=== PATIENT | male | born 1970 | race Caucasian/White ===

== ENCOUNTER 2019-04-22 08:06 | Day surgery (SDC) | payer OTHER, SELFPAY ==
[2019-03-26 08:22] VITALS: BMI 34.4
--- NOTE | 2019-03-26 08:46 | HP_ITS ---
Intake Vital Signs 03/26/19 Height 5 ft 10 in 03/26/19 Weight: 240 lb 03/26/19 Body Mass Index (BMI) 34.4 03/26/19 Blood Pressure 126/65 H 03/26/19 Blood Pressure Location Rt brachial 03/26/19 Blood Pressure Position Sitting 03/26/19 Respiratory Rate 18 03/26/19 Pulse Rate 78 03/26/19 Pulse Source Monitor 03/26/19 Temperature 98.0 F 03/26/19 Pulse Ox 97 03/26/19 Oxygen Delivery Method room air Intake Visit Reasons: Bilat Inguinal Hernia/sports hernia Chief Complaint: right inguinal pain Snubber Required: No Is patient in pain?: No Allergies No Known Allergies Allergy (Verified 03/26/19 08:22) Medications aspirin 325 mg tablet 325 mg PO DAILY 03/26/19 [History Confirmed 03/26/19] lisinopril 20 mg tablet 20 mg PO DAILY 03/26/19 [History Confirmed 03/26/19] loratadine 10 mg tablet 10 mg PO DAILY 03/26/19 [History Confirmed 03/26/19] triamcinolone acetonide 55 mcg/actuation nasal spray,aerosol mcg INTRANASAL DAILY 03/26/19 [History] [facility] Medical History Hypertension (Acute) Inguinal hernia of left side without obstruction or gangrene (Acute) Groin pain, chronic, right (Acute) Family history of colon cancer in mother (Acute) HTN (hypertension) (Chronic ~2013) Surgical History History of colonoscopy (Acute) Family History Father Heart disease Mother Colon cancer Social History (Updated 03/26/19 @ 08:46 by Konrad Walker MD) Smoking Status: Never smoker alcohol intake: current alcohol intake frequency: a few times a month substance use type: does not use HPI HPI HPI: DU MCCARTHY is a 48 M who presents to the office today for HPI HPI Surgical H&P: Yes HPI: DU MCCARTHY is a 48 M who presents to the office today for surgical consultation regarding now bilateral groin pain. I saw him one year ago and he was complaining of right groin pain. On clinical examination I detected a left inguinal hernia but I could not detect one on the right. Subsequently on April 23, 2018 at [facility] in [facility] he had a CT scan done. That demonstrated a fat-containing left one hernia. No defect on the right. The patient had hypertension and was working with his primary care physician to correct that. 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 In addition to that he keeps active with [employer]. Recently he has had increased discomfort in the right groin and now with new discomfort in the left groin. No fever or chills or sweats or dysuria. ROS General General: No weight change, appetite, fatigue, colon cancer, breast cancer or weakness HEENT HEENT: No difficulty swallowing, eye injury, eye surgery, swollen glands or hoarseness Endo Endocrine: No thyroid disease, diabetes mellitus, thyroid cancer, Hair loss, heat intolerance or cold intolerance Skin Skin: No rash or changing moles Breast Breast: No left breast lump, right breast lump, nipple discharge, breast pain, abnormal mammogram, abnormal US or breast enlargement Musc Musculoskeletal: No back problems, arthritis, rheumatoid arthritis, gout or joint pain Cardio Cardiovascular: Yes high blood pressure; no murmur, pacemaker, heart disease, atrial fibrillation, heart attack, heart stent, palpitations, shortness of breat with exertion or chest pain Psych Psychiatric: No depression, anxiety or hearing voices Resp Respiratory: No shortness of breath, No sleep apnea, No cough, No COPD, No asthma, No emphysema, No wheezing Gastro Gastrointestinal: No abdominal pain, No nausea or vomiting, No diarrhea, No constipation, No blood in stool, No acid reflux, No hemorrhoids, No ulcers, No gallbladder problem, No black,tarry stools Hector Hematologic: Yes blood thinners, No blood disorders, No bleeding, No anemia, No blood clots Neuro Neurologic: No system reviewed and no additional complaints, except as docu, No as per HPI, No abnormal walking, No abnormal hearing, No abnormal movements, No abnormal speech, No behavioral changes, No burning sensations, No confusion, No seizure-like activity, No unsteadiness, No dizziness, No localized weakness, No frequent falls, No headache(s), No lack of coordination, No loss of vision, No memory loss, No numbness, No other visual disturbances, No radiating pain, No restless legs, No sensory deficit, No fainting, No tingling, No tremor(s), No weakness, No other Exam Const General: cooperative, healthy appearing, comfortable, no acute distress Nutritional Appearance: obese Orientation: alert, awake, oriented x3 HENMT Head: normal to inspection Chest Breast Palpation: No nipple discharge Resp Effort & Inspection: normal respiratory effort Auscultation: clear to auscultation bilaterally Cardio Rate: regular rate Rhythm: regular rhythm Heart Sounds: no murmurs GI Palpation: soft, no hepatosplenomegaly Auscultation: normal bowel sounds Other: No testicular masses. Very slightly tender to palpation of the right testicle. Quite tender to examination right groin with suggestion of slight give. Less tender on the left with indirect defect noted on the left. No palpable varicosities Musc Cervical Spine: normal cervical lordosis Skin Other: Bilateral hands multiple area of superficial lacerations abrasions Neuro Cognition: normal cognition Extrem General: no calf tenderness bilaterally Psych Affect: normal affect Assessment & Plan Problems 1. Non-recurrent bilateral inguinal hernia without obstruction or gangrene K40.20 Plan I now suspect that the patient has bilateral inguinal hernias. We did however further extensively discussed the tentative diagnosis of a sports hernia on the right. I am recommending the patient a laparoscopic bilateral inguinal hernia repair. He has had an opportunity to ask and have questions answered. He is aware that CT imaging 1 year ago did demonstrate a definitive left inguinal hernia with no clear defect on the right. He is aware that a hernia repair for diagnosis of a sports inguinal hernia has a good chance of resolving his symptoms but not a perfect chance. He is aware that on today's examination I am feeling more of a given defect on the right. My current suspicion is 1 of symptomatic bilateral inguinal hernias. He does a significant amount of lifting and straining. The groins easily could get macerated with his work and he is overweight at 240 pounds with a BMI of 34. I believe that a laparoscopic approach would offer a more comfortable and better chance of repair with decreased risk of infection and debility. He has had an opportunity to ask and have questions answered. We will schedule and proceed at his discretion. I appreciate the ongoing opportunity of assisting with his surgical care. CC: Dr. Owen Walker M.D., F.A.C.S. Coding Level of Care Code Off vis,est,level 3 Diagnoses Non-recurrent bilateral inguinal hernia without obstruction or gangrene K40.20 ??Recurrence: non-recurrent 03/26/19 0846 <Electronically signed by Konrad marrero MD> Date _ Konrad Walker MD I have re-examined the patient. There are no clinical changes since date of exam.
--- NOTE | 2019-04-21 07:06 | EKG12_ITS ---
Test Reason : PRE OP Blood Pressure : / mmHG Vent. Rate : 070 BPM Atrial Rate : 070 BPM P-R Int : 172 ms QRS Dur : 094 ms QT Int : 390 ms P-R-T Axes : 050 062 067 degrees QTc Int : 421 ms Normal sinus rhythm Normal ECG Confirmed by CESAR BABCOCK, MED ([id number]), editor school photograph DAVID ISABEL ([id number]) on 04/22/2019 11:14:24 AM Referred By: Konrad Walker Confirmed By:MED GUERRERO MD
[2019-04-21 07:22] LABS: Hematocrit 47.3 % (40-54); Hemoglobin 16.4 g/dL (13.0-16.5); Mean Corp Hgb Conc 34.7 g/dL (32-36); Mean Corpuscular Hgb 31.9 pg (27.0-32.0); Mean Platelet Vol. 8.9 fl (6.2-12.0); Platelet Count 192 K/mm3 (150-450); RBC Distribution Width CV 12.1 % (11.6-14.6); RBC Distribution Width SD 41.2 fl (35.1-43.9); Red Blood Count 5.14 M/mm3 (4.6-6.2); White Blood Count 5.8 K/mm3 (4.4-11.0)
[2019-04-21 07:51] LABS: Anion Gap 6 (5-15); BUN 20 mg/dL (7-18); BUN/Creat Ratio 16.5 RATIO (10-20); Calcium,Total 8.8 mg/dL (8.5-10.1); Chloride 107 mmol/L (98-107); Creatinine, Serum 1.21 mg/dL (0.70-1.30); EST Glomerular Filtration Rate 68 mL/min (>60); Est Glom Filt Rate - Afr Amer 82 mL/min (>60); Glucose 104 mg/dL (74-106); Potassium 4.5 mmol/L (3.5-5.1); Sodium Level 139 mmol/L (136-145)
[2019-04-22] VITALS (7 sets, daily range): BP systolic 94–126; BP diastolic 62–84; PULSE 63–70; RESP 16–18; TEMP 36.2–36.5; O2SAT 92–96; BMI 35.2
[2019-04-22] MEDS: Lactated Ringers 1,000 ML 100 ML IV (09:02)
--- NOTE | 2019-04-22 09:39 | DCINST_ITS ---
Discharge Diet: Light diet - advance as tolerated - if you have questions about your diet instructions, please talk to you doctor. Discharge Activity: May Not Drive - for 3-5 days or while taking narcotic pain medicine. May shower in (days): 1 Lifting Restrictions: 10 pounds Call your doctor if your incision/area has: Continuous Slow Oozing, Sudden Increased Bleeding, Increased Pain/ Swelling, Increased Redness, Foul Smelling Discharge Call your doctor if you observe: Fever of 101 or Higher Suture Line Care: Avoid Pulling/Pushing, Avoid Pinching/Bending Additional Dressing/Incision Instructions:: Change or remove dressing in 4 days. Leave steri-strips in place for 1 week. Allergies/Adverse Reactions: Allergies No Known Allergies Allergy (Verified 04/17/19 09:23) Medications to take at Discharge aspirin 325 mg tablet 325 mg PO DAILY 03/26/19 lisinopril 20 mg tablet 20 mg PO DAILY 03/26/19 loratadine 10 mg tablet 10 mg PO DAILY 03/26/19 Primary Care Physician: Owen Harvey MD [Primary Care Provider] - Test Results: Test results from this visit will be discussed in further detail at your follow- up appointment, if applicable. Please Follow Up With: Konrad Walker MD - [phone] When: Call to make an appointment to be seen in about 10 days.
[2019-04-22] MEDS: Cefazolin 2 GM in 0.9% Normal Saline 100 ML IV (09:43)
[2019-04-22] MEDS: Bupivacaine Mpf 0.5% 30 ML VIAL (10:30)
--- NOTE | 2019-04-22 11:12 | OP.PCM_ITS ---
Problem List (1) Bilateral inguinal hernia without obstruction or gangrene Status: Acute Qualifiers: Recurrence: non-recurrent Report of Operation Date of Procedure: 04/22/19 Pre-Operative Diagnosis: Bilateral inguinal hernias Post-Operative Diagnosis: Small bilateral indirect inguinal hernias Surgery/Procedure Performed:: Laparoscopic bilateral inguinal herniorrhaphy. Bard 3 DMax mesh right large lot number [id number], reference #[id number], expiry date 10/13/2023. Bard 3 DMax mesh left large, lot number [id number], reference #[id number], expiry date 10/13/2023 Description of Surgical Findings:: Timeout and informed consent was obtained. 48-year-old gent was taken out from placement table underwent general endotracheal intubation anesthesia. Ancef 2 g given intravenously. The abdomen sterilely prepped and draped. 0.5% Marcaine was used as a local anesthetic. Skin sites were pre-anesthetized. Because of the patient's body habitus a small vertical supra umbilical incision was created sharp dissection carried down through the subcutaneous tissue holding sutures of 0 Vicryl placed varies needle inserted saline drop test performed the abdomen was insufflated with CO2 to a pressure of 12 mmHg pressure told me trocar inserted 10 lap scope inserted no concern trocar injuries under accusation abdomen was inspected no evidence of any superficial abnormalities. Under direct physician 5 Sam ports were placed in the right left lower quadrant. Ileal inguinal nerve blocks were performed bilaterally with a local under laparoscopic control. The peritoneum of the left internal hernia superior lateral to the internal ring was incised and carried medially. The peritoneum was then completely dissected free small indirect hernia was identified. D issection was performed so as to identify the direct indirect and femoral area. Similar peritoneal dissection was performed on the right. Had both sides exposed with clear view of the pubic tubercle. I placed both a right and left large 3D max mesh. I secured in place with secure strap. Excellent coverage of bilateral areas was achieved with the mesh meeting in the midline. I approximated the peritoneum using secure strap and hemo-lock clips. Complete obliteration of the mesh was achieved. I then repaired the fascial defect at the umbilicus using a 0 Vicryl and a grainy needle in a [id number] fashion. Good securement was achieved. Ports were then removed the abdomen was allowed to deflate of the CO2. Skin edges proximal interrupted 4 Monocryl subdermal stitches. Steri-Strips Telfa and OpSite dressings applied. Sponge and instrument and needle counts were reported the surgeon to be correct. Blood loss minimal. He tolerated the procedure well was taken to the recovery area in satisfactory condition without apparent complication. Specimens none. Drains none. Blood loss minimal. Konrad Walker M.D., F.A.C.S. Type of Anesthesia:: General Anesthesiologist: Luca Wheeler
== END 2019-04-22 13:31 | disposition home or self-care (01) ==
LOC: SDC 08:07 → AC 08:08
PROVIDERS: Family Provider Family Medicine; PCP Family Medicine; Referring Provider Surgery; Visit Provider Surgery
PROC: (CPT 49650; principal; 2019-04-22 09:30)
DX: K40.20 Bilateral inguinal hernia, without obstruction or gangrene, not specified as recurrent (principal); I10 Essential (primary) hypertension; E66.3 Overweight; Z68.34 Body mass index [BMI] 34.0-34.9, adult; Z79.82 Long term (current) use of aspirin; Z79.899 Other long term (current) drug therapy
CPT/HCPCS: 49650; 36415; 80048; 85027; 93005; J7120; C1781; J2405

== ENCOUNTER 2019-06-02 06:46 | Day surgery (SDC) | payer OTHER, SELFPAY ==
--- NOTE | 2019-03-26 08:46 | HP_ITS ---
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 Is patient in pain?: No Allergies No Known Allergies Allergy (Verified 03/26/19 08:22) Medications aspirin 325 mg tablet 325 mg PO DAILY 03/26/19 [History Confirmed 03/26/19] lisinopril 20 mg tablet 20 mg PO DAILY 03/26/19 [History Confirmed 03/26/19] loratadine 10 mg tablet 10 mg PO DAILY 03/26/19 [History Confirmed 03/26/19] triamcinolone acetonide 55 mcg/actuation nasal spray,aerosol mcg INTRANASAL DAILY 03/26/19 [History] [facility] Medical History Hypertension (Acute) Inguinal hernia of left side without obstruction or gangrene (Acute) Groin pain, chronic, right (Acute) Family history of colon cancer in mother (Acute) HTN (hypertension) (Chronic ~2013) Surgical History History of colonoscopy (Acute) Family History Father Heart disease Mother Colon cancer Social History (Updated 03/26/19 @ 08:46 by Konrad Walker MD) Smoking Status: Never smoker alcohol intake: current alcohol intake frequency: a few times a month substance use type: does not use HPI HPI HPI: DU MCCARTHY is a 48 M who presents to the office today for HPI HPI Surgical H&P: Yes HPI: DU MCCARTHY is a 48 M who presents to the office today for surgical consultation regarding now bilateral groin pain. I saw him one year ago and he was complaining of right groin pain. On clinical examination I detected a left inguinal hernia but I could not detect one on the right. Subsequently on April 23, 2018 at [facility] in [facility] he had a CT scan done. That demonstrated a fat-containing left one hernia. No defect on the right. The patient had hypertension and was working with his primary care physician to correct that. 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 In addition to that he keeps active with [employer]. Recently he has had increased discomfort in the right groin and now with new discomfort in the left groin. No fever or chills or sweats or dysuria. ROS General General: No weight change, appetite, fatigue, colon cancer, breast cancer or weakness HEENT HEENT: No difficulty swallowing, eye injury, eye surgery, swollen glands or hoarseness Endo Endocrine: No thyroid disease, diabetes mellitus, thyroid cancer, Hair loss, heat intolerance or cold intolerance Skin Skin: No rash or changing moles Breast Breast: No left breast lump, right breast lump, nipple discharge, breast pain, abnormal mammogram, abnormal US or breast enlargement Musc Musculoskeletal: No back problems, arthritis, rheumatoid arthritis, gout or joint pain Cardio Cardiovascular: Yes high blood pressure; no murmur, pacemaker, heart disease, atrial fibrillation, heart attack, heart stent, palpitations, shortness of breat with exertion or chest pain Psych Psychiatric: No depression, anxiety or hearing voices Resp Respiratory: No shortness of breath, No sleep apnea, No cough, No COPD, No asthma, No emphysema, No wheezing Gastro Gastrointestinal: No abdominal pain, No nausea or vomiting, No diarrhea, No constipation, No blood in stool, No acid reflux, No hemorrhoids, No ulcers, No gallbladder problem, No black,tarry stools Hector Hematologic: Yes blood thinners, No blood disorders, No bleeding, No anemia, No blood clots Neuro Neurologic: No system reviewed and no additional complaints, except as docu, No as per HPI, No abnormal walking, No abnormal hearing, No abnormal movements, No abnormal speech, No behavioral changes, No burning sensations, No confusion, No seizure-like activity, No unsteadiness, No dizziness, No localized weakness, No frequent falls, No headache(s), No lack of coordination, No loss of vision, No memory loss, No numbness, No other visual disturbances, No radiating pain, No restless legs, No sensory deficit, No fainting, No tingling, No tremor(s), No weakness, No other Exam Const General: cooperative, healthy appearing, comfortable, no acute distress Nutritional Appearance: obese Orientation: alert, awake, oriented x3 HENMT Head: normal to inspection Chest Breast Palpation: No nipple discharge Resp Effort & Inspection: normal respiratory effort Auscultation: clear to auscultation bilaterally Cardio Rate: regular rate Rhythm: regular rhythm Heart Sounds: no murmurs GI Palpation: soft, no hepatosplenomegaly Auscultation: normal bowel sounds Other: No testicular masses. Very slightly tender to palpation of the right testicle. Quite tender to examination right groin with suggestion of slight give. Less tender on the left with indirect defect noted on the left. No palpable varicosities Musc Cervical Spine: normal cervical lordosis Skin Other: Bilateral hands multiple area of superficial lacerations abrasions Neuro Cognition: normal cognition Extrem General: no calf tenderness bilaterally Psych Affect: normal affect Assessment & Plan Problems 1. Non-recurrent bilateral inguinal hernia without obstruction or gangrene K40.20 Plan I now suspect that the patient has bilateral inguinal hernias. We did however further extensively discussed the tentative diagnosis of a sports hernia on the right. I am recommending the patient a laparoscopic bilateral inguinal hernia repair. He has had an opportunity to ask and have questions answered. He is aware that CT imaging 1 year ago did demonstrate a definitive left inguinal hernia with no clear defect on the right. He is aware that a hernia repair for diagnosis of a sports inguinal hernia has a good chance of resolving his symptoms but not a perfect chance. He is aware that on today's examination I am feeling more of a given defect on the right. My current suspicion is 1 of symptomatic bilateral inguinal hernias. He does a significant amount of lifting and straining. The groins easily could get macerated with his work and he is overweight at 240 pounds with a BMI of 34. I believe that a laparoscopic approach would offer a more comfortable and better chance of repair with decreased risk of infection and debility. He has had an opportunity to ask and have questions answered. We will schedule and proceed at his discretion. I appreciate the ongoing opportunity of assisting with his surgical care. CC: Dr. Owen Walker M.D., F.A.C.S. Coding Level of Care Code Off vis,est,level 3 Diagnoses Non-recurrent bilateral inguinal hernia without obstruction or gangrene K40.20 ??Recurrence: non-recurrent 03/26/19 0846 <Electronically signed by Konrad marrero MD> Date _ Konrad Walker MD
[2019-04-22 08:35] VITALS: BMI 35.2
[2019-06-02] VITALS (8 sets, daily range): BP systolic 93–128; BP diastolic 67–90; PULSE 66–86; RESP 15–16; TEMP 36.5–36.7; O2SAT 95–100; BMI 35.4
[2019-06-02] MEDS: Lactated Ringers 1,000 ML 100 ML IV (07:36)
--- NOTE | 2019-06-02 08:04 | PCM.HP.STD ---
Problem List (1) Screening for intestinal cancer Status: Acute History of Present Illness Date of Admission: 06/02/19 The patient is a 48 year old M who presents for screening colonoscopy today. He has a family history of colon cancer in her mother who at age 47. He has had 2 previous colonoscopy. He states he is not had any previous polyps. His previous colonoscopy was 5 years ago. He denies bright red blood per rectum or melena. It is of note that just 6 weeks ago he had bilateral laparoscopic inguinal hernia repairs per myself. It is he who now schedules the screening colonoscopy. He presents via open access Past Medical History Medical History: Medical History (Last Reviewed 04/30/19 @ 08:32 by Soniya Santo) Bilateral inguinal hernia without obstruction or gangrene (Acute) K40.20 Hypertension (Acute) I10 Inguinal hernia of left side without obstruction or gangrene (Acute) K40.90 Groin pain, chronic, right (Acute) R10.31, G89.29 Family history of colon cancer in mother Z80.0 HTN (hypertension) Onset Date: ~2013 I10 Allergies No Known Allergies Allergy (Verified 06/02/19 07:26) Home Medications: Ambulatory Orders Medication Instructions Recorded aspirin 325 mg tablet 325 mg PO DAILY 03/26/19 lisinopril 20 mg tablet 20 mg PO DAILY 03/26/19 loratadine 10 mg tablet 10 mg PO DAILY 03/26/19 Surgical History: Surgical History (Last Reviewed 04/30/19 @ 08:32 by Soniya Santo) History of colonoscopy Z98.890 S/P bilateral inguinal hernia repair Z98.890, Z87.19 05/05 Smoking Status: Never smoker Tobacco Use: Non-smoker Review of Systems HEENT: Denies: Difficulty Swallowing Cardiovascular: Denies: Chest Pain Respiratory: Denies: Cough Gastrointestinal: Denies: Abdominal Pain Genitourinary: Reports: - - Bilateral groin discomfort still not 100% normal Endocrine: Denies: Change in Body Habitus VTE Information - Inpt Only VTE Present on Admission: No Patient Problems: Active and Suspected Problems (Last Reviewed 04/30/19 @ 08:32 by Soniya Santo) Screening for intestinal cancer (Acute) - Physical Exam Vitals/I&O's: Vital Signs Temp Pulse Resp BP Pulse Ox 97.9 F 66 15 116/71 96 06/02/19 07:27 06/02/19 07:27 06/02/19 07:27 06/02/19 07:27 06/02/19 07:27 Oxygen Delivery Method Room Air Weight: 243 lb 13.3 oz Body Mass Index (BMI) 35.4 General: Alert, Oriented x3, Cooperative, No apparent distress Oral: Moist Mucosa Lungs: Clear to auscultation, Normal air movement Cardiovascular: Regular rate, Regular Rhythm Abdomen: Bowel Sounds Present, Soft, Non Tender Extremities: No Calf Tenderness Psych/Mental Status: Normal Affect Current Medications Lactated Ringer's () 1,000 mls @ 100 mls/hr IV .Q10H RYANN Last Admin: 06/02/19 07:36 Dose: 100 mls/hr Documented by: Assessment/Plan All Active Problems (Last Reviewed 04/30/19 @ 08:32 by Soniya Santo) Screening for intestinal cancer (Acute) Bilateral inguinal hernia without obstruction or gangrene (Acute) Hypertension (Acute) Inguinal hernia of left side without obstruction or gangrene (Acute) Groin pain, chronic, right (Acute) Patient with a family history of colon cancer in his mother who from the disease. Previous colonoscopy 5 years ago. He presents via open access today. We will proceed with a surveillance colonoscopy with possible biopsy or polypectomy is indicated. He has had an opportunity to ask and have questions answered. He presents via open access. Konrad Walker M.D., F.A.C.S.
--- NOTE | 2019-06-02 08:35 | OP.COLON_ITS ---
Patient Name: Gatito Rao Procedure Date: 06/02/2019 8:04 AM Date of : 1970 Age: 48 Procedure: Colonoscopy Indications: Family history of colon cancer in a first-degree relative Providers: Konrad Walker MD Referring MD: Owen Harvey Medicines: Midazolam 4.5 mg IV, Meperidine 100 mg IV Patient Profile: Last Colonoscopy: 5 years ago. Complications: No immediate complications. Procedure: Pre-Anesthesia Assessment: - Prior to the procedure, a History and Physical was performed, and patient medications and allergies were reviewed. The patient's tolerance of previous anesthesia was also reviewed. The risks and benefits of the procedure and the sedation options and risks were discussed with the patient. All questions were answered, and informed consent was obtained. Prior Anticoagulants: The patient has taken no previous anticoagulant or antiplatelet agents. ASA Grade Assessment: II - A patient with mild systemic disease. After reviewing the risks and benefits, the patient was deemed in satisfactory condition to undergo the procedure. After I obtained informed consent, the scope was passed under direct vision. Throughout the procedure, the patient's blood pressure, pulse, and oxygen saturations were monitored continuously. The colonoscope was introduced through the anus and advanced to the cecum, identified by appendiceal orifice and ileocecal valve. The colonoscopy was performed without difficulty. The patient tolerated the procedure well. The quality of the bowel preparation was good. The ileocecal valve was photographed. Moderate Sedation: Moderate (conscious) sedation was personally administered by the endoscopist. The following parameters were monitored: oxygen saturation, heart rate, blood pressure, and response to care. Total physician intraservice time was 15 minutes. Scope In: 8:21:36 AM Scope Withdrawal Time 0 hours 6 minutes 15 seconds Scope Out: 8:31:01 AM Total Procedure Duration Time 0 hours 9 minutes 25 seconds Findings: The digital rectal exam findings include non-thrombosed external hemorrhoids, non-thrombosed internal hemorrhoids and internal hemorrhoids that prolapse with straining, but spontaneously regress to the resting position (Grade II). Pertinent negatives include normal prostate (size, shape, and consistency). Scattered diverticula were found in the sigmoid colon. The exam was otherwise without abnormality. Impression: - Non-thrombosed external hemorrhoids, non-thrombosed internal hemorrhoids and internal hemorrhoids that prolapse with straining, but spontaneously regress to the resting position (Grade II) found on digital rectal exam. - Diverticulosis in the sigmoid colon. - The examination was otherwise normal. - No specimens collected. Recommendation: - Discharge patient to home. - Resume previous diet. - Continue present medications. - Repeat colonoscopy in 5 years for surveillance. Procedure Code(s): --- Professional --- 77527, Colonoscopy, flexible; diagnostic, including collection of specimen(s) by brushing or washing, when performed (separate procedure) 21655, 59, Moderate sedation services provided by the same physician or other qualified health animal caregiver performing the diagnostic or therapeutic service that the sedation supports, requiring the presence of an independent trained observer to assist in the monitoring of the patient's level of consciousness and physiological status; initial 15 minutes of intraservice time, patient age 5 years or older Diagnosis Code(s): --- Professional --- K64.1, Second degree hemorrhoids K64.4, Residual hemorrhoidal skin tags Z80.0, Family history of malignant neoplasm of digestive organs K57.30, Diverticulosis of large intestine without perforation or abscess without bleeding CPT copyright 2017 [employer]. All rights reserved. The codes documented in this report are preliminary and upon box toe maker review may be revised to meet current compliance requirements. Konrad Walker MD 06/02/2019 8:34:57 AM This report has been signed electronically. Number of Addenda: 0 Note Initiated On: 06/02/2019 8:04 AM
== END 2019-06-02 09:27 | disposition home or self-care (01) ==
LOC: EN 06:47 → AC 06:47
PROVIDERS: Family Provider Family Medicine; PCP Family Medicine; Referring Provider Family Medicine; Visit Provider Surgery
PROC: 0DJD8ZZ Inspection of Lower Intestinal Tract, Via Natural or Artificial Opening Endoscopic (ICD-10-PCS; CPT 45378; principal; 2019-06-02 07:55)
DX: Z12.11 Encounter for screening for malignant neoplasm of colon (principal); K57.30 Diverticulosis of large intestine without perforation or abscess without bleeding; I10 Essential (primary) hypertension; Z79.82 Long term (current) use of aspirin; Z79.899 Other long term (current) drug therapy; Z98.890 Other specified postprocedural states; Z80.0 Family history of malignant neoplasm of digestive organs
CPT/HCPCS: 45378; 99152; 99153; J7120